=== PATIENT | female | born 1945 | race Caucasian/White ===

== ENCOUNTER 2019-11-17 06:49 | Inpatient (IN) | payer MEDICARE, OTHER ==
[2019-11-05 08:56] LABS: HEMATOCRIT 38.8 % (37.0-47.0); HEMOGLOBIN 13.6 gm/dL (12.0-15.0); MCH 31.9 pg (26.0-34.0); MCHC 35.1 g/dL (28.0-37.0); MCV 90.8 fL (80.0-100.0); MPV 6.5 fl. (7.2-11.1); RBC 4.27 mil/uL (4.20-5.00); RDW-CV 13.3 % (10.5-14.5); WBC 5.2 thou/uL (4.0-11.0)
[2019-11-05 09:08] LABS: URINE BILIRUBIN NEGATIVE (Negative); URINE BLOOD TRACE (Negative); URINE CLARITY CLEAR; URINE COLOR YELLOW; URINE GLUCOSE-RANDOM NEGATIVE (Negative); URINE KETONES NEGATIVE (Negative); URINE LEUKOCYTES-REFLEX NEGATIVE (Negative); URINE NITRITE-REFLEX NEGATIVE (Negative); URINE PROTEIN NEGATIVE (Negative); URINE SPECIFIC GRAVITY 1.015 (1.005-1.030); URINE UROBILINOGEN 0.2 E.U./dl (0.2-1.0)
[2019-11-05 09:10] LABS: ALBUMIN 3.3 g/dL (3.4-5.0); CALCIUM 8.4 mg/dL (8.5-10.1); CREATININE 0.9 mg/dL (0.6-1.3); TOTAL BILIRUBIN 0.3 mg/dL (<0.1-1.0); TOTAL PROTEIN 6.5 g/dL (6.4-8.2)
--- NOTE | 2019-11-05 13:47 | EKG ---
[place] [address] ELECTROCARDIOGRAM REPORT Name: DINH GONZALEZ Room: PRE IN [facility].#: [id number] Admission: Attend Phys: Teresa Patel Discharge: Date of : 45 Report #: [id number] THIS REPORT FOR: //name// [facility] Test Date: 2019-11-05 Test Time: 09:27:39 Pat Name: DINH GONZALEZ Department: Room: Gender: F [employer]: : 1945 Requested By: Amor Morton Order Number: [id number] Reading MD: Bethel Hopkins Measurements Intervals [place] Rate: 56 P: 65 RI: 136 QRS: 38 QRSD: 81 T: 38 QT: 402 QTc: 388 Interpretive Statements Sinus rhythm Low voltage, precordial leads No previous ECG available for comparison Electronically Signed On 11-05-2019 13:46:33 MANAGER OPERATIONS RESEARCH by Bethel Hopkins [email or web address] <ELECTRONICALLY SIGNED> By: Bethel Hopkins MD, [facility] 11/05/19 1346 0927 6 Bethel Hopkins MD, FACC /EPI
[~2019-11-17] VITALS: Ht 165.1 cm; Wt 63.5 kg
[~2019-11-17 06:49] MED LIST: ASPIR 8181 M1 PO; ATORVASTATIN CA40 MG PO; CARVEDILOL3.125 MG PO; CENTRUM SILVER1 EAC4 PO; CO Q-10100 M1 PO; COLACE 100 MG100 MG PO; COQ-10100 MG PO; HYDROCODONE-AP1 EAC6 PO; LIPITOR 20 MG T20 M1 PO; METAMUCIL1 EAC1 PO; MINOCIN100 MG PO; PERCOCET 5-3251 EACH PO; VITAMIN D2000 UNIT PO; XARELTO10 MG PO
[2019-11-17 10:30] VITALS: BP 146/74
[2019-11-17 18:11] VITALS: BP 120/49
--- NOTE | 2019-11-17 18:18 | NUR ---
PT ALERT AND ORIENTED. PT ORIENTED TO ROOM. FAMILY AT BEDSIDE. PT EDUCATED ON USING CALL LIGHT WHEN NEEDING PAIN MEDS. FALL RISK PRECAUTIONS IN PLACE. HOURLY ROUNDING COMPLETED. WILL CONTINUE TO MONITOR.
[2019-11-17 20:18] VITALS: BP 136/64
[2019-11-18] VITALS (7 sets, daily range): BP systolic 112–155; BP diastolic 47–71
[2019-11-18 05:35] LABS: HEMATOCRIT 32.4 % (37.0-47.0); MCH 30.9 pg (26.0-34.0); MCV 90.9 fL (80.0-100.0); MPV 7.5 fl. (7.2-11.1); NUCLEATED RBCS 0 /100WBC; PLATELET COUNT* 219 thou/uL (150-400); RBC 3.56 mil/uL (4.20-5.00); WBC 11.8 thou/uL (4.0-11.0)
--- NOTE | 2019-11-18 05:45 | NUR ---
PATIENT RESTED COMFORTABLY THROUGH NIGHT. RECEIVED SCHEDULED ABX. RECEIVED HYDROCODONE FOR PAIN. WAS ABLE TO AMBULATE WITH ASSISTANCE TO RESTROOM USING WALKER. WBAT AND HEMOVAC STILL IN PLACE. DRESSING C/D/I. POD#1. WILL CONTINUE TO FOLLOW PLAN OF CARE.
[2019-11-18 06:05] LABS: ALBUMIN 2.7 g/dL (3.4-5.0); CALCIUM 7.6 mg/dL (8.5-10.1); CREATININE 0.9 mg/dL (0.6-1.3); POTASSIUM 4.1 mmol/L (3.5-5.1); TOTAL BILIRUBIN 0.4 mg/dL (<0.1-1.0); TOTAL PROTEIN 5.7 g/dL (6.4-8.2)
[2019-11-18 06:22] LABS: ABSOLUTE LYMPHOCYTES 0.7 thou/uL (0.8-5.3); ABSOLUTE MONOCYTES 0.6 thou/uL (0.0-1.2); ABSOLUTE NEUTROPHILS 10.5 thou/uL (1.6-8.1); ANISOCYTOSIS 1+; PLATELET ESTIMATE ADEQUATE; POIKILOCYTOSIS 1+; TOXIC GRANULATION 1+
[2019-11-18] MEDS ORDERED: COLACE100 MG PO (09:41)
[2019-11-18] MEDS ORDERED: XARELTO10 MG PO (09:42)
[2019-11-18] MEDS ORDERED: PERCOCET 5-3251 EACH PO (12:19)
--- NOTE | 2019-11-18 12:55 | NUR ---
CM ASSESSMENT: VISITED WITH PT AND IN ROOM. PT STATES SHE WOULD LIKE TO GO HOME TODAY. ONE STAIR TO GET IN THE HOUSE WHICH PT IS COMFORTABLE WITH. PT HAS A WALKER.PT WOULD LIKE HOME HEALTH DC ORDERS ON CHART. WILL FAX PAPERWORK TO [email or web address] WHICH IS DR [facility]
--- NOTE | 2019-11-18 14:37 | NUR ---
COPAY FOR XARELTO IS $34. PT NOTIFIED
--- NOTE | 2019-11-18 14:58 | NUR ---
PT GIVEN DISCHARGE INFORMATION, CARE NOTES, AND PRESCRIPTIONS. IV REMOVED. PT BELONGINGS GATHERED. PT LEFT VIA WHEELCHAIR WITH NURSING STAFF TO HOME WITH HOME HEALTH.FALL RISK PRECAUTIONS IN PLACE. HOURLY ROUNDING COMPLETED.
--- NOTE | 2019-11-18 22:05 | OP ---
[facility] [address] [place] [address] OPERATIVE REPORT Name: DINH GONZALEZ Room: [address] IN M.R.#: [id number] Admission: 11/17/19 Attend Phys: Teresa Patel Discharge: 11/18/19 Date of : 45 Report #: [id number] THIS REPORT FOR: //name// CC: Su Chang DATE OF SERVICE: 11/17/2019 PREOPERATIVE DIAGNOSIS: Right hip osteoarthritis. POSTOPERATIVE DIAGNOSIS: Right hip osteoarthritis. PROCEDURE: Right total hip arthroplasty. SURGEON: Amor Morton II, DO SIGNALS ANALYST: BREE Pickett ANESTHESIA: General endotracheal. ESTIMATED BLOOD LOSS: 200 mL. ANTIBIOTICS: Ancef preoperatively. DRAINS: Medium Hemovac. COMPLICATIONS: None. CONDITION OF THE PATIENT: Stable to recovery room. IMPLANTS: Listed in operative record and progress note. BRIEF HISTORY: The patient is seen in preoperative area. Preoperative H and P was performed. Site was marked. Questions were answered. Risks and benefits were discussed with the patient in detail about surgery. The patient wished to proceed assuming all risks. DESCRIPTION OF PROCEDURE: The patient was taken to the operative suite and placed supine on the operative table, given appropriate anesthesia. The patient's operative hip was placed on the [place] table leg hearn and sterilely prepped and draped in the supine position. Surgery began by a longitudinal incision over the anterior portion of the hip. This was carried down to the subcutaneous tissues. A small santhosh was made in the tensor fascia. It was then split along its fibers and retracted laterally. An H capsulotomy was then performed and careful hemostasis was obtained with electrocautery and [facility] [address] [place] [address] OPERATIVE REPORT Name: DINH GONZALEZ Room: [address] IN .Antonia.#: [id number] Admission: 11/17/19 Attend Phys: Teresa Patel Discharge: 11/18/19 Date of : 45 Report #: [id number] Aquamantys. The head and neck cutting alignment guide was then checked with fluoroscopic guidance. Appropriate cuts were made to the head and neck and this was removed. Attention was turned to the acetabulum. Excess labrum was removed. It was then reamed in sequential fashion up to appropriate size. This showed excellent bleeding bone and excellent position on fluoroscopic guidance. The acetabular cup was then malleted into position and secured with cancellous screws. Metal liner was then applied. The patient's leg was then rotated and extended in the [place] table to expose the femur. It was then broached in sequential fashion up to appropriate size. The appropriate neck was then trialed with appropriate head length and showed excellent fit and fill and excellent stability of the hip throughout all range of motion. These trials were then removed. The final stem was then malleted into position and the final head and neck was then malleted into position. It was reduced in appropriate fashion, checked with C-arm for appropriate leg length and showed excellent leg length throughout the exam without evidence of dislocation upon range of motion and shuck testing. Wound was then copiously irrigated. Hemostasis was obtained with electrocautery and Aquamantys. Pain cocktail was injected. PRP gel was sprayed throughout the internal aspects of the hip. Pen drain was activated. The H capsulotomy was then closed with #1 Vicryl in [id number] fashion and tensor fascia was closed with #1 Vicryl in running fashion. Skin was closed with 2-0 Vicryl and a running 3-0 Monocryl with Dermabond and sterile dressing was applied. The patient was transported to the recovery room in stable condition. Counts were correct throughout the procedure. <ELECTRONICALLY SIGNED> By: Amor Morton II, DO 11/18/19 [id number] Morton II, DO /nt
== END 2019-11-18 14:59 | disposition home health service (06) | DRG 470 ==
LOC: M.PRE 06:49 → M.ORTHSURG 10:04 → M.TBA 10:04 → M.PRE 13:44 → M.ORTHSURG 17:50
PROVIDERS: Orthopaedic Surgery; ADMIT Internal Medicine
PROC: 0SR903Z Replacement of Right Hip Joint with Ceramic Synthetic Substitute, Open Approach (ICD-10-PCS; principal; 2019-11-17)
DX: M16.11 Unilateral primary osteoarthritis, right hip (principal); E44.1 Mild protein-calorie malnutrition; M81.0 Age-related osteoporosis without current pathological fracture; I25.10 Atherosclerotic heart disease of native coronary artery without angina pectoris; G89.29 Other chronic pain; Z96.1 Presence of intraocular lens; E78.5 Hyperlipidemia, unspecified; Z68.23 Body mass index [BMI] 23.0-23.9, adult; I25.2 Old myocardial infarction; Z88.6 Allergy status to analgesic agent; Z88.5 Allergy status to narcotic agent; Z88.0 Allergy status to penicillin; Z79.899 Other long term (current) drug therapy; Z79.82 Long term (current) use of aspirin; Z90.49 Acquired absence of other specified parts of digestive tract; Z95.5 Presence of coronary angioplasty implant and graft; Z98.42 Cataract extraction status, left eye; Z98.41 Cataract extraction status, right eye; Z90.710 Acquired absence of both cervix and uterus; Z82.49 Family history of ischemic heart disease and other diseases of the circulatory system; Z83.3 Family history of diabetes mellitus